=== PATIENT | male | born 1960 | race Caucasian/White ===

== ENCOUNTER 2021-03-15 20:32 | Inpatient (IN) | payer OTHER, BC ==
[~2021-03-15] VITALS: Ht 185.4 cm; Wt 108.9 kg
[2021-03-16 00:51] LABS: HEMOGLOBIN 12.2 gm/dl (14.0-17.5); RED BLOOD COUNT 4.33 M/UL (4.20-5.50); WHITE BLOOD COUNT 11.4 K/UL (4.5-11.0)
[2021-03-16 01:33] LABS: BUN/CREATININE RATIO 17 (0-10)
[2021-03-16 03:56] LABS: HEMOGLOBIN 11.4 gm/dl (14.0-17.5); RED BLOOD COUNT 4.15 M/UL (4.20-5.50); WHITE BLOOD COUNT 10.3 K/UL (4.5-11.0)
[2021-03-16] MEDS ORDERED: DAIRY AID3000 UNIT PO (04:48)
[2021-03-16] MEDS ORDERED: VITAMIN D375 MCG PO (04:49)
[2021-03-16 08:48] LABS: HEMOGLOBIN 11.4 gm/dl (14.0-17.5); RED BLOOD COUNT 4.11 M/UL (4.20-5.50); WHITE BLOOD COUNT 8.5 K/UL (4.5-11.0)
[2021-03-16 15:05] LABS: HEMOGLOBIN 11.8 gm/dl (14.0-17.5); RED BLOOD COUNT 4.24 M/UL (4.20-5.50); WHITE BLOOD COUNT 8.7 K/UL (4.5-11.0)
[2021-03-17 07:26] LABS: HEMOGLOBIN 10.9 gm/dl (14.0-17.5); RED BLOOD COUNT 3.91 M/UL (4.20-5.50); WHITE BLOOD COUNT 9.6 K/UL (4.5-11.0)
[2021-03-17 07:50] LABS: BUN/CREATININE RATIO 10 (0-10)
[2021-03-18 08:14] LABS: HEMOGLOBIN 10.1 gm/dl (14.0-17.5); RED BLOOD COUNT 3.63 M/UL (4.20-5.50); WHITE BLOOD COUNT 7.5 K/UL (4.5-11.0)
[2021-03-18 08:36] LABS: BUN/CREATININE RATIO 10 (0-10)
[2021-03-18] MEDS ORDERED: ONDANSETRON4 MG/2 M2 PO (08:42)
[2021-03-18] MEDS ORDERED: OXYCODONE HCL5 MG PO (08:42)
[2021-03-18] MEDS ORDERED: SENNA LAX8.6 MG PO (08:42)
[2021-03-18] MEDS ORDERED: DOCUSATE SODIU100 MG PO (08:42)
[2021-03-18] MEDS ORDERED: VALIUM 2 MG TAB2 MG PO (08:42)
[2021-03-18] MEDS ORDERED: CYCLOBENZAPRINE10 MG PO (08:42)
== END 2021-03-18 12:59 | disposition home or self-care (01) | DRG 964 ==
LOC: ER1 20:32 → CCU 03-16 01:56 → CDU 03-16 01:56 → CCU 03-16 05:11 → M/S 03-17 11:45
PROVIDERS: Emergency Medicine; Surgery; ADMIT Surgery
DX: S06.0X0A Concussion without loss of consciousness, initial encounter (principal); S22.42XA Multiple fractures of ribs, left side, initial encounter for closed fracture; S36.039A Unspecified laceration of spleen, initial encounter; S37.032A Laceration of left kidney, unspecified degree, initial encounter; S27.321A Contusion of lung, unilateral, initial encounter; Z20.822 Contact with and (suspected) exposure to COVID-19; V29.9XXA Motorcycle rider (driver) (passenger) injured in unspecified traffic accident, initial encounter; Y92.410 Unspecified street and highway as the place of occurrence of the external cause
CPT/HCPCS: 36415; 70450; 71111; 71260; 72125; 80048; 80053; 85025; 85027; 86850; 86870; 86900; 86901; 86920; 86922; 96374; 96375; 99285; J1170; J1885; J2270; J2405; J3480; Q9967; U0002